=== PATIENT | female | born 1975 | race African-American/Black ===

== ENCOUNTER → 2020-01-07 13:18 | Outpatient (BNVA) | payer SELFPAY | DX: Z02.1 Encounter for pre-employment examination (principal) | CPT/HCPCS: 71045 ==

== ENCOUNTER → 2020-07-24 12:43 | Outpatient (BNVA) | payer OTHER, SELFPAY | PROVIDERS: Visit Provider Physician Assistant Medical | DX: S69.92XA Unspecified injury of left wrist, hand and finger(s), initial encounter (principal); X50.3XXA Overexertion from repetitive movements, initial encounter | CPT/HCPCS: 73110; 73130; 99203 ==

== ENCOUNTER → 2020-07-31 12:56 | Outpatient (BNVA) | payer OTHER, SELFPAY | PROVIDERS: Visit Provider Physician Assistant | DX: M65.4 Radial styloid tenosynovitis [de Quervain] (principal) | CPT/HCPCS: 99213 ==

== ENCOUNTER → 2020-08-11 13:17 | Outpatient (BNVA) | payer OTHER, SELFPAY | PROVIDERS: Visit Provider Physician Assistant Medical | DX: M65.4 Radial styloid tenosynovitis [de Quervain] (principal) | CPT/HCPCS: 99213 ==

== ENCOUNTER → 2020-08-24 09:47 | Outpatient (BNVA) | payer OTHER, SELFPAY | PROVIDERS: Visit Provider Physician Assistant Medical | DX: M65.4 Radial styloid tenosynovitis [de Quervain] (principal) | CPT/HCPCS: 99213 ==

== ENCOUNTER → 2020-09-06 14:18 | Outpatient (BNVA) | payer OTHER, SELFPAY | PROVIDERS: Visit Provider Physician Assistant | DX: M65.4 Radial styloid tenosynovitis [de Quervain] (principal) | CPT/HCPCS: 99202 ==

== ENCOUNTER → 2020-09-07 09:07 | Outpatient (BNVA) | payer OTHER, SELFPAY | PROVIDERS: PCP Internal Medicine; Visit Provider Physician Assistant | DX: M65.4 Radial styloid tenosynovitis [de Quervain] (principal) | CPT/HCPCS: 20550; 99212; J1020 ==

== ENCOUNTER → 2020-10-05 14:28 | Outpatient (BNVA) | payer OTHER, BC, SELFPAY | PROVIDERS: Visit Provider Physician Assistant | DX: M65.4 Radial styloid tenosynovitis [de Quervain] (principal) | CPT/HCPCS: 99212 ==

== ENCOUNTER → 2020-11-24 09:19 | Outpatient (BNVA) | payer OTHER, SELFPAY | PROVIDERS: Visit Provider Physician Assistant Medical | DX: M65.4 Radial styloid tenosynovitis [de Quervain] (principal) | CPT/HCPCS: 99203 ==

== ENCOUNTER → 2020-11-30 13:16 | Outpatient (BNVA) | payer OTHER, SELFPAY | PROVIDERS: Visit Provider Physician Assistant Medical | DX: M65.4 Radial styloid tenosynovitis [de Quervain] (principal) | CPT/HCPCS: 99213 ==

== ENCOUNTER → 2020-12-05 08:39 | Outpatient (BNVA) | payer OTHER, SELFPAY | PROVIDERS: Visit Provider Physician Assistant | DX: M65.4 Radial styloid tenosynovitis [de Quervain] (principal) | CPT/HCPCS: 99212 ==

== ENCOUNTER 2020-12-12 07:21 | Outpatient (REF) | payer OTHER, SELFPAY ==
--- NOTE | ~2020-12-12 | MR_ITS ---
EXAMINATION: MR WRIST WITHOUT CONTRAST, LEFT CLINICAL INFORMATION: Left DeQuervain tendonitis. COMPARISON: X-ray of the left hand July 2020. TECHNIQUE: MRI of the left wrist was performed without contrast on a high-field MRI scanner. FINDINGS: Subcutaneous Soft Tissues: Normal. Muscles/Tendons: Minimal fluid noted within the 1st extensor tendon compartment surrounding the extensor pollicis brevis tendon. Triangular Fibrocartilage Complex: Normal. Intraosseous Ligaments: Normal. Bone and Articular Cartilage: Normal. Neurovascular Structures: Normal. Intraosseous Ligaments: Normal. Miscellaneous: There is a small lobulated fluid collection abutting the dorsal aspect of the lunate/ triquetrum joint having the appearance of a small ganglion cyst. This measures 4 mm transverse, 3 mm AP and 5 mm craniocaudal. MR/MR wrist LT wo con IMPRESSION: Minimal tenosynovitis surrounding the extensor pollicis brevis tendon within the 1st extensor compartment. The tendon appears otherwise intact. Small ganglion cyst along the dorsal aspect of the lunate/triquetrum joint.
== END 2020-12-12 07:22 | disposition home or self-care (01) ==
LOC: HO.MRI 07:21
PROVIDERS: PCP Internal Medicine; Visit Provider Internal Medicine
DX: M25.532 Pain in left wrist (principal); M65.4 Radial styloid tenosynovitis [de Quervain]
CPT/HCPCS: 73221

== ENCOUNTER → 2020-12-19 13:17 | Outpatient (BNVA) | payer OTHER, SELFPAY | PROVIDERS: PCP Internal Medicine; Visit Provider Orthopaedic Surgery | DX: M65.4 Radial styloid tenosynovitis [de Quervain] (principal) | CPT/HCPCS: 99202 ==

== ENCOUNTER 2020-12-28 10:21 | Day surgery (SDC) | payer OTHER, SELFPAY ==
[2020-12-28 10:38] VITALS: BMI 26.6
[2020-12-28 10:39] VITALS: BP 108/71; PULSE 107; RESP 20; TEMP 37.1; O2SAT 100; BMI 26.6
--- NOTE | 2020-12-28 13:16 | MHC.SHP ---
Pre-Procedural Eval Section A Date of Service: 12/28/20 The patient is an INPATIENT: No Changes since office visit: No Cold of Flu in the past 2 weeks, No New Medical Problems, No Changes in Medication and No Patient answered all questions The History & Physical has been completed within 30 days and I have reviewed it.: Yes Section B Chief Complaint: Radial Styloid Tenosynovitis Allergies: Allergies Allergy/AdvReac Type Severity Reaction Status Date / Time No Known Allergies Allergy Verified 12/19/20 13:45 Plan I have reviewed the history and physical and performed a pertinent physical examination on my patient. No changes have occurred unless specified.
--- NOTE | 2020-12-28 13:17 | W.PM.OPN ---
Operative Note Operative Note Date of Service: 12/28/20 Narrative: Operative Note Preop diagnosis: 1. left DeQuervain's tenosynovitis Postop diagnosis: 1. left DeQuervain's tenosynovitis Procedure: 1. left 1st dorsal compartment release Surgeon: Janie Yoon MD Anesthesia: local block using 1% lidocaine with epinephrine Findings: Thickened 1st dorsal compartment. APL and APB tendons and separate compartment EBL: Less than 5 mL Tourniquet time: None Specimens: None Complications: None Disposition: Brought to recovery room in stable condition Plan: Follow-up for 7-10 days for wound check and suture removal Indications: The patient is 45 years old, with left DeQuervain's tenosynovitis that has been unresponsive to nonoperative management. The risks and benefits of operative treatment including but not limited to risk of damage to blood vessels, nerves, tendons, infection, persistent pain, persistent symptoms, recurrence or possible need for additional surgery were discussed with the patient and the patient wishes to proceed with surgery. Procedure: Once consent was obtained a local block was performed in the preop area using a combination of 1% lidocaine with epinephrine. The patient was then brought back to the operating suite and placed on the operative table in supine position. A tourniquet was applied to the proximal aspect of the left upper extremity and the limb was prepped and draped in a standard surgical fashion. Once assured that we had a good block, a 1.5 cm longitudinal incision was made centered over the 1st dorsal compartment as it passed over the radial styloid of the left wrist. The incision was made through the skin to the subcutaneous tissues using a #15 blade. Careful dissection was made down to the level of the 1st dorsal compartment using tenotomy scissors, with care being taken to protect the nearby branches of the superficial radial nerve. Once the 1st dorsal compartment was exposed, A longitudinal incision was made in the 1st dorsal compartment 1st using a #15 blade, then using tenotomy scissors under direct visualization. The 1st dorsal compartment was noted to be thickened, and the APL and EPB tendons were in separate compartment. After opening the compartment longitudinally over the APL tendon, I then open the compartment longitudinally over the EPB tendon. The tendons themselves appeared to be in good condition.. Following our release, we saw smooth gliding abductor pollicis longus and extensor pollicis brevis tendons. Once satisfied with our 1st dorsal compartment release the wound was copiously irrigated with normal saline and hemostasis was obtained with a brief period of local pressure. The subcutaneous layer was closed with some 4-0 Vicryl suture, and the skin edges were reapproximated with some 5.0 nylon suture material. A sterile dressing was applied. The patient appears to have tolerated the procedure well and with no complications. All digits were well vascularized at the conclusion of the case.
[2020-12-28 13:48] VITALS: BP 118/72; PULSE 82; RESP 16; TEMP 36.9; O2SAT 99
== END 2020-12-28 14:00 | disposition home or self-care (01) ==
PROVIDERS: PCP Internal Medicine; Visit Provider Orthopaedic Surgery
PROC: (CPT 25000; principal; 2020-12-28 11:30)
DX: M65.4 Radial styloid tenosynovitis [de Quervain] (principal); D69.6 Thrombocytopenia, unspecified
CPT/HCPCS: 25000

== ENCOUNTER → 2021-01-10 12:19 | Outpatient (BNVA) | payer OTHER, SELFPAY | PROVIDERS: Visit Provider Orthopaedic Surgery | DX: M65.4 Radial styloid tenosynovitis [de Quervain] (principal) | CPT/HCPCS: 99212 ==

== ENCOUNTER → 2021-02-07 12:38 | Outpatient (BNVA) | payer OTHER, SELFPAY | PROVIDERS: Visit Provider Orthopaedic Surgery | DX: M65.4 Radial styloid tenosynovitis [de Quervain] (principal) | CPT/HCPCS: 99212 ==

== ENCOUNTER → 2021-03-21 09:36 | Outpatient (BNVA) | payer OTHER, SELFPAY | PROVIDERS: Visit Provider Orthopaedic Surgery | DX: M65.4 Radial styloid tenosynovitis [de Quervain] (principal) | CPT/HCPCS: 99212 ==

== ENCOUNTER 2021-04-10 13:00 | Outpatient (RCR) | payer OTHER, SELFPAY ==
--- NOTE | 2021-04-10 14:06 | MHC.OT.DC ---
[address] [phone] F: [phone] Occupational Therapy Discharge Note Provider: Janie Yoon Diagnosis: S/P left 1st dorsal compartment release Date of Surgery: 12/19/20 Date of Evaluation: 03/27/21 Date of Discharge: 04/10/21 Treatments to Date: 6 Cancellations to Date: 0 No Shows to Date: 0 Discharge Status: Improved Function Independent with HEP Patient Elected to Stop Discharge Summary: Pt is 12 wks s/p left Dequervains release, seen in OT over the past 2 wks Improving pain, ROM and strength. 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 Pt reports returning to work today and feeling confidence to do that and with her HEP. Pt preferring self management Electronically Signed By: Vangie Roman OT CHT CLT Reviewed/agree with student documentation: N/A Therapist: Please Sign and return to therapist, thank you for your referral.
== END 2021-04-10 14:07 | disposition home or self-care (01) ==
LOC: HO.OT 13:00
PROVIDERS: Visit Provider Orthopaedic Surgery
DX: M65.4 Radial styloid tenosynovitis [de Quervain] (principal)
CPT/HCPCS: 97033; 97035; 97110; 97140; 97165; 97530